=== PATIENT | male | born 1975 | race Hispanic/Latino ===

== ENCOUNTER 2021-04-27 06:37 | Day surgery (SDC) | payer OTHER ==
[2021-04-25 11:01] LABS: BASOPHILS % (AUTO) 0.6 % (0.0-5.0); EOSINOPHILS % (AUTO) 3.8 % (0.0-8.0); HEMATOCRIT 45.2 % (42-54); LYMPHOCYTES % (AUTO) 26.1 % (21.0-51.0); MEAN CORPUSCULAR HEMOGLOBIN 30.3 pg (27.0-33.0); MEAN CORPUSCULAR HGB CONC 33.2 g/dL (32.0-36.0); MEAN CORPUSCULAR VOLUME 91.3 fL (79-99); MONOCYTES % (AUTO) 8.9 % (3.0-13.0); NEUTROPHILS % (AUTO) 60.3 % (40.0-77.0); PLATELET COUNT (AUTO) 259 K/uL (130-400); POTASSIUM 3.9 mmol/L (3.5-5.1); RED BLOOD CELL COUNT(AUTO) 4.95 MIL/uL (4.50-6.20); RED CELL DISTRIBUTION WIDTH 12.9 % (11.0-15.5)
[2021-04-26 10:59] VITALS: BP 175/90
[~2021-04-27] VITALS: Ht 170.2 cm; Wt 104.1 kg
[2021-04-27] VITALS (15 sets, daily range): BP systolic 124–158; BP diastolic 78–86
[~2021-04-27 06:37] MED LIST: GLIM4TAB36 PO; LOSA50TA64 PO; SIMV-43 PO
[2021-04-27] MEDS: CEFAZOLIN SODIUM 2 GM VIAL IV SCH ×2 (07:00→08:28)
[2021-04-27] MEDS ORDERED: 0.9%NACL 1000ML 1,000 ML IV ONE (07:12)
[2021-04-27] MEDS ORDERED: CEFAZOLIN SODIUM 1 GM VIAL ONE (07:12)
[2021-04-27] MEDS ORDERED: PROPOFOL 10 MG/ML 20ML VIAL IV ONE (07:51)
[2021-04-27] MEDS ORDERED: DEXAMETHASONE SOD PHOSPHATE 10MG/ML 1ML VIAL ONE (07:51)
[2021-04-27] MEDS ORDERED: GLYCOPYRROLATE 1 MG/5 ML SYRINGE ONE (07:51)
[2021-04-27] MEDS ORDERED: ONDANSETRON 4MG INJ ONE (07:51)
[2021-04-27] MEDS ORDERED: FENTANYL CITRATE PF 50 MCG/1 ML 2ML VIAL ONE ×2 (07:51→08:40)
[2021-04-27] MEDS ORDERED: LIDOCAINE PF 100MG/5ML (2%) SYRINGE 5ML ONE ×2 (07:51→07:52)
[2021-04-27] MEDS ORDERED: NEOSTIGMINE 5MG/5ML SYR IV ONE (07:51)
[2021-04-27] MEDS ORDERED: SUCCINYLCHOLINE CHLORIDE 20 MG/ML 10 ML VIAL ONE ×2 (07:51→07:52)
[2021-04-27] MEDS ORDERED: ROCURONIUM 10MG/1ML SYR 10 MG/ML ML ONE (07:52)
[2021-04-27] MEDS ORDERED: MIDAZOLAM HCL 1 MG/ML 2ML VIAL ONE (07:52)
[2021-04-27] MEDS ORDERED: LOSA1TAB37 PO (08:32)
[2021-04-27] MEDS ORDERED: CEPH500B PO (09:23)
[2021-04-27] MEDS ORDERED: ACET1TAB25 PO (09:23)
[2021-04-27] MEDS ORDERED: MEPERIDINE-PF 25 MG/ML SYG ONE (09:35)
[2021-04-27] MEDS ORDERED: ACETAMINOPHEN WITH CODEINE 1 TAB TAB ONE (10:38)
[2021-04-27] MEDS ORDERED: ACETAMINOPHEN WITH CODEINE 1 TAB TAB PO SCH (11:00)
== END 2021-04-27 11:45 | disposition home or self-care (01) ==
LOC: DAH 06:37
PROVIDERS: ATTEND Orthopaedic Surgery
DX: M23.322 Other meniscus derangements, posterior horn of medial meniscus, left knee (principal); Z20.822 Contact with and (suspected) exposure to COVID-19; M17.32 Unilateral post-traumatic osteoarthritis, left knee; E11.9 Type 2 diabetes mellitus without complications; E66.9 Obesity, unspecified; E78.5 Hyperlipidemia, unspecified; Z98.890 Other specified postprocedural states; Z82.49 Family history of ischemic heart disease and other diseases of the circulatory system; Z68.35 Body mass index [BMI] 35.0-35.9, adult; Z79.899 Other long term (current) drug therapy
CPT/HCPCS: 29881; 36415; 80048; 82948 ×2; 85025; 87635; A4215; A4221; A4222; A4223; A4649; A4663; A4930 ×3; A6223; C9803; J0330 ×2; J0690; J1100; J2001 ×2; J2175; J2250; J2405; J2704; J2710; J3010 ×2; J3490; J7030

== ENCOUNTER → 2022-08-30 | Outpatient (CLI) | payer OTHER ==
[~2022-08-30] MED LIST changes: +ACET-2079 PO; +CEPH500B PO; +LOSA1TAB37 PO; -LOSA50TA64 PO
[2022-08-30 16:31] LABS: CREATININE 0.8 mg/dL (0.5-1.5)
== END | disposition home or self-care (01) ==
LOC: LAB 13:16
PROVIDERS: ATTEND Internal Medicine Cardiovascular Disease
DX: I10 Essential (primary) hypertension (principal)
CPT/HCPCS: 36415; 82565; 84520

== ENCOUNTER → 2022-09-10 | Outpatient (CLI) | payer OTHER ==
[~2022-09-10] MED LIST changes: +IOHEXOL 350 MG/ML 100ML INFUS..BTL IV ONE; +METOPROLOL TARTRATE 1 MG/ML 5ML VIAL IV ONE
== END | disposition home or self-care (01) ==
LOC: RAH 08:37
PROVIDERS: ATTEND Internal Medicine Cardiovascular Disease
DX: I10 Essential (primary) hypertension (principal); E78.5 Hyperlipidemia, unspecified; U07.1 COVID-19
CPT/HCPCS: 75574; J3490; Q9967

== ENCOUNTER → 2022-10-29 | Outpatient (CLI) | payer OTHER ==
[~2022-10-29] MED LIST changes: -IOHEXOL 350 MG/ML 100ML INFUS..BTL IV ONE; -METOPROLOL TARTRATE 1 MG/ML 5ML VIAL IV ONE
== END | disposition home or self-care (01) ==
LOC: SHCH 14:58
PROVIDERS: ATTEND Internal Medicine Cardiovascular Disease
DX: I11.9 Hypertensive heart disease without heart failure (principal); R01.1 Cardiac murmur, unspecified; E11.9 Type 2 diabetes mellitus without complications
CPT/HCPCS: 93306

== ENCOUNTER → 2024-05-14 | Outpatient (CLI) | payer OTHER ==
[2024-05-14] MEDS: REGADENOSON 0.4 MG/5 ML PF SYG IVP ONE (15:09)
== END | disposition home or self-care (01) ==
LOC: SHCH 08:09
PROVIDERS: ATTEND Internal Medicine Cardiovascular Disease
DX: I49.3 Ventricular premature depolarization (principal); R07.9 Chest pain, unspecified
CPT/HCPCS: 78452; 93017; J2785; A9500 ×2